=== PATIENT | female | born 1930 | race Caucasian/White ===

== ENCOUNTER 2017-01-25 22:21 | Inpatient (IN) | payer OTHER, MEDICARE ==
[~2017-01-25] VITALS: Ht 162.6 cm; Wt 80.5 kg
--- NOTE | ~2017-01-25 | 2DMMODE ---
[facility] [address] [place] [address] 2 D/M-MODE ECHOCARDIOGRAM Name: EDWARD BROOKS Room #: 206-P [facility] IN [facility]#: [id number] Admission: 01/26/17 Attend Phys: Yulissa Quintero Discharge: Date of : 30 Date of Service: 01/26/17 1127 Report #: [id number] THIS REPORT FOR: //name// APPROVED REPORT Study performed: 01/26/2017 08:35:34 EXAM: Comprehensive 2D, Doppler, and color-flow Echocardiogram Patient Location: Bedside Blood Pressure: 153/69 mmHg HR: 66 bpm Other Information Study Quality: Adequate Indications Hypertension/HDD Chest Pain 2D Dimensions RVDd: 30.81 mm LVEF(%): 62.58 (>50%) IVSd: 8.13 (7-11mm) LVOT Diam: 17.26 (18-24mm) LVDd: 39.92 mm PWd: 9.51 (7-11mm) Ascending Aorta: 30.04 mm LVDs: 26.61 (25-40mm) IVC: 18.00 mm Aortic Root: 32.66 mm Villegas's LVEF: 62.58 % Volumes Left Atrial Volume (Systole) Single Plane 4CH: 25.94 mL Single Plane 2CH: 37.60 mL LA ESV Index: 19.00 mL/m2 Aortic Valve AoV Peak Bogdan.: 1.29 m/s AO Peak Gr.: 6.70 mmHg LV Max P.25 mmHg LV Max: 1.25 m/s Mitral Valve MV PHT: 113.59 ms MV E Max Bogdan.: 0.85 m/s E/A Ratio: 0.6 MV A Bogdan.: 1.43 m/s MV Decel. Time: 391.70 [place] [address] 2 D/M-MODE ECHOCARDIOGRAM Name: EDWARD BROOKS Room #: 206-[facility] IN .R.#: [id number] Admission: 01/26/17 Attend Phys: Yulissa Quintero Discharge: Date of : 30 Date of Service: 01/26/17 1127 Report #: [id number] Pulmonary Valve PV Peak Bogdan.: 0.69 m/s PV Peak Gr.: 1.88 mmHg Tricuspid Valve TR Peak Bogdan.: 2.43 m/s RAP Estimate: 5.00 mmHg TR Peak Gr.: 23.58 mmHg Left Ventricle The left ventricle is normal size. There is normal LV segmental wall motion. There is normal left ventricular wall thickness. Left ventricular systolic function is normal. The left ventricular ejection fraction is within the normal range. LVEF is 60-65%. Grade I - abnormal relaxation pattern. Right Ventricle The right ventricle is normal size. The right ventricular systolic function is normal. Atria The left atrium size is normal. The right atrium size is normal. Aortic Valve The aortic valve is normal in structure. No aortic regurgitation is present. There is no aortic valvular stenosis. Mitral Valve The mitral valve is normal in structure. Trace mitral regurgitation. Tricuspid Valve The tricuspid valve is normal in structure. There is trace tricuspid regurgitation. The right atrial pressure is estimated at 5 mmHg. There is no pulmonary hypertension. The estimated PAP was 29 mmHg. Pulmonic Valve The pulmonary valve is normal in structure. There is no pulmonic valvular regurgitation. Great Vessels The aortic root is normal in size. IVC is normal in size and collapses >50% with inspiration. Pericardium [facility] [address] [place] [address] 2 D/M-MODE ECHOCARDIOGRAM Name: EDWARD BROOKS Room #: 206-P [facility] IN ..#: [id number] Admission: 01/26/17 Attend Phys: Yulissa Quintero Discharge: Date of : 30 Date of Service: 01/26/17 1127 Report #: [id number] There is no pericardial effusion. <Conclusion> The left ventricle is normal size. LVEF is 60-65%. The aortic valve is normal in structure. The mitral valve is normal in structure. Trace mitral regurgitation. <ELECTRONICALLY SIGNED> By: Javier Hillman MD 01/26/17 1127 1127 1127 Javier Hillman MD /INF
--- NOTE | ~2017-01-25 | EKG ---
[address] [place] [address] ELECTROCARDIOGRAM REPORT Name: EDWARD BROOKS Room #: 206-P [facility] IN M.R.#: [id number] Admission: 01/26/17 Attend Phys: Yulissa Hernandez Discharge: Date of : 30 Report #: [id number] THIS REPORT FOR: //name// [facility] ED Test Date: 2017-01-25 Test Time: 22:36:15 Pat Name: EDWARD BROOKS Department: Room: 206 Gender: F [employer] Specialist: KAROL : 1930 Requested By: Ximena Shanks Order Number: [id number] MD: Zeeshan Lizarraga Measurements Intervals [place] Rate: 86 P: -7 GA: 145 QRS: 47 QRSD: 97 T: 38 QT: 377 QTc: 451 Interpretive Statements Sinus rhythm Probable left atrial enlargement No previous ECG available for comparison Electronically Signed On 01-26-2017 13:34:03 CDT by Zeeshan Lizarraga [email or web address] <ELECTRONICALLY SIGNED> By: Zeeshan Lizarraga MD 01/26/17 1334 [id number] Zeeshan Lizarraga MD /HECTOR
[~2017-01-25 22:21] MED LIST: ACETAMINOPHEN325 M1 PO; APAP500 PO; APAP650 PO; ASPIRIN EC81 M1 PO; CARVEDILOL25 MG PO; CLONAZEPAM PO; COREG CR40 MG PO; COZAAR 50 MG TA50 M2 PO; FLAX OIL1000 MG PO; LEXAPRO 10 MG T10 M1 PO; LEXAPRO 10 MG T10 MG PO; LINSEED OIL1 ML MC; LIPITOR20 MG PO; MOBIC15 MG PO; MULTIVITAMINS PO; NEURONTIN 300300 M1 PO; NEURONTIN 300M300 M2 PO; NOLVADEX20 MG PO; OMEGA 3 1,0001 EACH PO; OMEGA-31000 MG PO; PEPCID40 MG PO; PREDNISONE 20 M20 MG PO; PREVACID 30MG C30 M1 PO; SYMBICORT160 MCG/4. INH; SYNTHROID125 MCG PO; SYNTHROID150 MCG PO; TIMOLOL GL0.5 %/5 M1 OP; TRAMADOL 50 MG50 MG PO; TRIPLE FLEX; TRIPLE FLEX CA1 EACH PO; VISTARIL 25 MG25 M1 PO; VITAMIN E200 UNI4 PO; VITAMIN E400 UNIT PO
[2017-01-26] VITALS (7 sets, daily range): BP systolic 11–177; BP diastolic 59–69
[2017-01-26 00:12] LABS: ABSOLUTE NEUTROPHILS 4.8 thou/uL (1.4-8.2); BASOPHILS 1.1 % (0.0-2.0); EOSINOPHILS 3.5 % (0.0-3.0); HEMATOCRIT 37.9 % (37.0-47.0); LYMPHOCYTES 25.9 % (24.0-44.0); MCH 30.1 pg (26.0-34.0); MCHC 34.3 g/dL (28.0-37.0); MCV 87.8 fL (80.0-100.0); MONOCYTES 8.1 % (1.0-8.0); PLATELET COUNT 120 thou/uL (150-400); POLYS 61.4 % (36.0-66.0); RBC 4.31 mil/uL (4.20-5.00); RDW 13.1 % (10.5-14.5); WBC 7.8 thou/uL (4.0-11.0)
[2017-01-26 00:13] LABS: MANUAL DIFF NO
[2017-01-26 00:28] LABS: APTT 25.9 Seconds (24.5-32.8); INR 1.1; PROTIME 11.3 Seconds (9.3-11.4)
[2017-01-26 00:30] LABS: ALKALINE PHOSPHATASE 59 U/L (46-116); ANION GAP 10 mmol/L (7-16); BUN 37 mg/dL (7-18); CALCIUM 8.9 mg/dL (8.5-10.1); CHLORIDE 108 mmol/L (98-107); CO2 23 mmol/L (21-32); CREATININE 1.4 mg/dL (0.6-1.3); GLUCOSE 123 mg/dL (70-99); SGOT 18 U/L (15-37); SGPT 22 U/L (30-65); SODIUM 141 mmol/L (136-145); TOTAL BILIRUBIN 0.6 mg/dL (<0.1-1.0); TOTAL PROTEIN 6.9 g/dL (6.4-8.2)
[2017-01-26 00:31] LABS: ALBUMIN 3.4 g/dL (3.4-5.0)
[2017-01-26 00:32] LABS: TROPONIN-I < 0.04 ng/mL (<0.04-0.07)
[2017-01-26 01:03] LABS: URINE BILIRUBIN NEGATIVE (Negative); URINE BLOOD NEGATIVE (Negative); URINE COLOR YELLOW; URINE GLUCOSE-RANDOM* NEGATIVE (Negative); URINE KETONES NEGATIVE (Negative); URINE LEUKOCYTES-REFLEX 1+ (Negative); URINE PROTEIN (DIPSTICK) NEGATIVE (Negative); URINE UROBILINOGEN 0.2 E.U./dl (0.2-1.0)
[2017-01-26 01:11] LABS: HYALINE CASTS 4-10 Moderate /LPF (None Seen); SQUAMOUS 4-10 Moderate /LPF (0-3)
[2017-01-26 01:12] LABS: CRYSTALS None Seen /LPF (None Seen); TRANSITIONAL EPITHEL CELL 0-3 Few /LPF (None Seen); URINE RBC 0-2 Rare /HPF (0-2)
[2017-01-26 01:32] LABS: NT-PRO BRAIN NAT PEPTIDE 179 pg/mL (<300)
[2017-01-26 07:14] LABS: CHOLESTEROL 139 mg/dL (<200); HDL CHOLESTEROL 40 mg/dL (>40); LDL CHOLESTEROL 67 mg/dL (<100); TC:HDL 3.5 Ratio (Not establshd); TRIGLYCERIDE 162 mg/dL (<150); VLDL 32 mg/dL (<40)
[2017-01-26] MEDS ORDERED: ALDACTONE50 MG PO (17:58)
== END 2017-01-26 18:27 | disposition home or self-care (01) | DRG 313 ==
LOC: ER 22:21 → EROBS 01-26 00:35 → 2N 01-26 00:35
PROVIDERS: Emergency Medicine; Nurse Practitioner
DX: R07.89 Other chest pain (principal); N17.9 Acute kidney failure, unspecified; I10 Essential (primary) hypertension; E03.9 Hypothyroidism, unspecified; E78.5 Hyperlipidemia, unspecified; M81.0 Age-related osteoporosis without current pathological fracture; F41.1 Generalized anxiety disorder; G43.909 Migraine, unspecified, not intractable, without status migrainosus; E11.42 Type 2 diabetes mellitus with diabetic polyneuropathy; Z60.2 Problems related to living alone; F32.9 Major depressive disorder, single episode, unspecified; J45.909 Unspecified asthma, uncomplicated; K21.9 Gastro-esophageal reflux disease without esophagitis; E86.0 Dehydration; Z88.1 Allergy status to other antibiotic agents; Z88.6 Allergy status to analgesic agent; Z88.0 Allergy status to penicillin; Z88.4 Allergy status to anesthetic agent; Z88.2 Allergy status to sulfonamides; Z85.3 Personal history of malignant neoplasm of breast; Z88.8 Allergy status to other drugs, medicaments and biological substances; Z80.3 Family history of malignant neoplasm of breast; Z79.82 Long term (current) use of aspirin; Z82.0 Family history of epilepsy and other diseases of the nervous system; Z83.79 Family history of other diseases of the digestive system; Z82.49 Family history of ischemic heart disease and other diseases of the circulatory system; Z79.899 Other long term (current) drug therapy
CPT/HCPCS: 10081

== ENCOUNTER → 2017-03-07 | Outpatient (CLI) | payer OTHER, MEDICARE ==
[~2017-03-07] MED LIST changes: +ALDACTONE50 MG PO
== END | disposition home or self-care (01) ==
LOC: RAD 09:35
DX: M53.3 Sacrococcygeal disorders, not elsewhere classified (principal); D69.6 Thrombocytopenia, unspecified